=== PATIENT | female | born 1990 | race Caucasian/White ===

== ENCOUNTER 2018-09-11 09:54 | Emergency (ER) | payer OTHER ==
[~2018-09-11] VITALS: Ht 165.1 cm; Wt 61.6 kg
[2018-09-11 10:06] VITALS: BP 125/79
== END 2018-09-11 11:17 | disposition home or self-care (01) ==
LOC: ED 10:50
DX: J06.9 Acute upper respiratory infection, unspecified (principal)
CPT/HCPCS: 71046; 99283